=== PATIENT | female | born 1940 | race Caucasian/White ===

== ENCOUNTER 2022-12-22 17:34 | Inpatient (IN) | payer OTHER ==
[2022-12-22 18:24] VITALS: BMI 24.1
[2022-12-22] MEDS ORDERED: HALOPERIDOL LACTATE 5 MG/ML IM ONE (19:30)
[2022-12-22] MEDS ORDERED: LORazepam 2 MG/ML SDV VIAL IM ONE (19:58)
[2022-12-22 23:43] LABS: BASO % 0.6 % (0-2.0); HEMATOCRIT 36.4 % (32.4-45.2); HEMOGLOBIN 12.5 GM/dL (10.7-15.3); LYMPH % 36.9 % (8-40); MCHC 34.2 g/dl (32.0-36.0); MEAN CELL VOLUME 81.8 fl (80-96); MEAN PLT VOLUME 7.8 fl (7.5-11.1); MONO % 7.5 % (3.8-10.2); PLATELET COUNT 228 10^3/uL (134-434); RBC 4.45 M/mm3 (3.60-5.2); RDW 14.8 % (11.6-15.6); WHITE BLOOD COUNT 7.5 K/mm3 (4.0-10.0)
[2022-12-23 00:33] LABS: CALCIUM 8.6 mg/dL (8.5-10.1)
[2022-12-23 00:34] LABS: ALBUMIN 3.3 g/dl (3.4-5.0)
[2022-12-23 00:37] LABS: CREATININE 0.8 mg/dL (0.55-1.3)
[2022-12-23 00:39] LABS: BILIRUBIN,TOTAL 0.4 mg/dL (0.2-1); TOT PROT 5.8 g/dl (6.4-8.2)
[2022-12-23] MEDS ORDERED: ACETAMINOPHEN 325 MG TABLET (FP) PO PRN (03:31)
[2022-12-23] MEDS ORDERED: SODIUM CHLORIDE 500 ML IV STA (03:32)
[2022-12-23] MEDS ORDERED: FAMOTIDINE 20 MG/50 ML IVPB 20 MG/50 ML MG IVPB ONE ×2 (05:00→05:24)
[2022-12-23] MEDS ORDERED: HALOPERIDOL LACTATE 5 MG/ML IM ONE (05:45)
[2022-12-23] MEDS: SERTRALINE HCL 50 MG TABLET (FP) PO SCH (09:38)
[2022-12-23] MEDS ORDERED: risperiDONE 1 MG TABLET PO SCH (22:00)
[2022-12-23] MEDS: SENNOSIDES 8.8 MG/5 ML SYRUP PO SCH (22:01)
[2022-12-23] MEDS: ATORVASTATIN CA 10 MG TABLET (FP) PO SCH (22:02)
[2022-12-24 08:26] LABS: INR 1.02 (0.83-1.09); PROTHROMBIN TIME (PATIENT) 11.8 SEC (9.7-13.0)
[2022-12-24 08:29] LABS: ACTIVATED PTT 29.4 SECONDS (25.2-36.5)
[2022-12-24 08:38] LABS: POTASSIUM 3.7 mmol/L (3.5-5.1)
[2022-12-24 08:51] LABS: BLOOD UREA NITROGEN 24.3 mg/dL (7-18); CALCIUM 9.2 mg/dL (8.5-10.1); MAGNESIUM 2.2 mg/dL (1.8-2.4)
[2022-12-24 08:55] LABS: CREATININE 0.8 mg/dL (0.55-1.3); PHOSPHOROUS 3.2 mg/dL (2.5-4.9)
[2022-12-24] MEDS: FAMOTIDINE 20 MG TABLET PO SCH (10:21)
[2022-12-24] MEDS: SERTRALINE HCL 50 MG TABLET (FP) PO SCH (10:21)
[2022-12-24] MEDS: OLANZapine 10 MG TABLET PO SCH ×2 (22:18→22:45)
[2022-12-24] MEDS: MIRTAZAPINE 15 MG TABLET (FP) PO SCH ×2 (22:18→22:50)
[2022-12-24] MEDS: ATORVASTATIN CA 10 MG TABLET (FP) PO SCH ×2 (22:18→22:35)
[2022-12-24] MEDS: SENNOSIDES 8.8 MG/5 ML SYRUP PO SCH ×2 (22:18→22:50)
[2022-12-25] MEDS ORDERED: INSULIN (NOVOLOG) ASPART 100 UNITS/ML 10ML VIAL ONE (08:48)
[2022-12-25] MEDS: FAMOTIDINE 20 MG TABLET PO SCH (10:03)
[2022-12-25] MEDS: HALOPERIDOL LACTATE 5 MG/ML IM PRN (14:09)
[2022-12-25] MEDS: OLANZapine 10 MG TABLET PO SCH (15:03)
[2022-12-25] MEDS: SENNOSIDES 8.8 MG/5 ML SYRUP PO SCH (21:56)
[2022-12-25] MEDS: MIRTAZAPINE 15 MG TABLET (FP) PO SCH (21:56)
[2022-12-25] MEDS: ATORVASTATIN CA 10 MG TABLET (FP) PO SCH (21:56)
[2022-12-26] MEDS: FAMOTIDINE 20 MG TABLET PO SCH (11:53)
[2022-12-26] MEDS: OLANZapine 10 MG TABLET PO SCH (11:53)
[2022-12-26 16:06] LABS: BASO % 0.5 % (0-2.0); EOS % 0.8 % (0-4.5); HEMATOCRIT 35.3 % (32.4-45.2); HEMOGLOBIN 12.1 GM/dL (10.7-15.3); LYMPH % 31.9 % (8-40); MCH 28.1 pg (25.7-33.7); MCHC 34.2 g/dl (32.0-36.0); MEAN PLT VOLUME 7.8 fl (7.5-11.1); MONO % 7.4 % (3.8-10.2); NEUT % 59.4 % (42.8-82.8); PLATELET COUNT 210 10^3/uL (134-434); RBC 4.31 M/mm3 (3.60-5.2); RDW 14.3 % (11.6-15.6); WHITE BLOOD COUNT 6.7 K/mm3 (4.0-10.0)
[2022-12-26 16:27] LABS: CALCIUM 8.5 mg/dL (8.5-10.1); POTASSIUM 4.2 mmol/L (3.5-5.1)
[2022-12-26 16:29] LABS: BLOOD UREA NITROGEN 29.4 mg/dL (7-18)
[2022-12-26 16:31] LABS: CREATININE 0.7 mg/dL (0.55-1.3)
[2022-12-26] MEDS: SENNOSIDES 8.8 MG/5 ML SYRUP PO SCH (22:10)
[2022-12-26] MEDS: ATORVASTATIN CA 10 MG TABLET (FP) PO SCH (22:11)
[2022-12-26] MEDS: MIRTAZAPINE 15 MG TABLET (FP) PO SCH (22:11)
[2022-12-27 08:15] LABS: BASO % 0.6 % (0-2.0); EOS % 1.6 % (0-4.5); HEMATOCRIT 34.8 % (32.4-45.2); HEMOGLOBIN 11.9 GM/dL (10.7-15.3); LYMPH % 38.1 % (8-40); MCH 28.1 pg (25.7-33.7); MCHC 34.2 g/dl (32.0-36.0); MEAN PLT VOLUME 8.1 fl (7.5-11.1); MONO % 6.9 % (3.8-10.2); NEUT % 52.8 % (42.8-82.8); PLATELET COUNT 217 10^3/uL (134-434); RBC 4.24 M/mm3 (3.60-5.2); RDW 14.6 % (11.6-15.6); WHITE BLOOD COUNT 7.4 K/mm3 (4.0-10.0)
[2022-12-27 08:33] LABS: POTASSIUM 3.9 mmol/L (3.5-5.1)
[2022-12-27 08:36] LABS: BLOOD UREA NITROGEN 35.8 mg/dL (7-18); CALCIUM 8.3 mg/dL (8.5-10.1)
[2022-12-27 08:39] LABS: CREATININE 0.7 mg/dL (0.55-1.3)
[2022-12-27] MEDS: FAMOTIDINE 20 MG TABLET PO SCH (10:51)
[2022-12-27] MEDS: OLANZapine 10 MG TABLET PO SCH (10:51)
[2022-12-27 12:37] LABS: EPI CELLS 4 /uL (0-25.1); HYALINE CASTS 5 /uL (0-3.1); URINE APPEARANCE CLOUDY; URINE BACTERIA >9,000 /uL (0-1359); URINE BILIRUBIN NEGATIVE (NEGATIVE); URINE COLOR YELLOW; URINE GLUCOSE (UA) NEGATIVE (NEGATIVE); URINE KETONE NEGATIVE (NEGATIVE); URINE LEUK ESTERASE 1+ (NEGATIVE); URINE NITRITE NEGATIVE (NEGATIVE); URINE PROTEIN NEGATIVE (NEGATIVE); URINE WBC 154 /uL (0-25.8)
[2022-12-27 12:38] LABS: URINE RBC 52.4 /uL (0-23.9)
[2022-12-27] MEDS: MIRTAZAPINE 15 MG TABLET (FP) PO SCH (21:53)
[2022-12-27] MEDS: SENNOSIDES 8.8 MG/5 ML SYRUP PO SCH (21:53)
[2022-12-27] MEDS: CEFUROXIME AXETIL 500 MG TABLET PO SCH (21:53)
[2022-12-27] MEDS: ATORVASTATIN CA 10 MG TABLET (FP) PO SCH (21:53)
[2022-12-28] MEDS: CEFUROXIME AXETIL 500 MG TABLET PO SCH (13:29)
[2022-12-28] MEDS: FAMOTIDINE 20 MG TABLET PO SCH (13:30)
[2022-12-28] MEDS: OLANZapine 10 MG TABLET PO SCH (13:30)
[2022-12-28] MEDS: MIRTAZAPINE 15 MG TABLET (FP) PO SCH (22:59)
[2022-12-28] MEDS: ATORVASTATIN CA 10 MG TABLET (FP) PO SCH (22:59)
[2022-12-28] MEDS: SENNOSIDES 8.8 MG/5 ML SYRUP PO SCH (22:59)
[2022-12-29] MEDS: FAMOTIDINE 20 MG TABLET PO SCH (09:47)
[2022-12-29] MEDS: OLANZapine 10 MG TABLET PO SCH (09:47)
[2022-12-29] MEDS: ATORVASTATIN CA 10 MG TABLET (FP) PO SCH (21:59)
[2022-12-29] MEDS: SENNOSIDES 8.8 MG/5 ML SYRUP PO SCH (22:00)
[2022-12-29] MEDS: MIRTAZAPINE 15 MG TABLET (FP) PO SCH (22:00)
[2022-12-30] MEDS: OLANZapine 10 MG TABLET PO SCH (09:47)
[2022-12-30] MEDS: FAMOTIDINE 20 MG TABLET PO SCH (09:48)
[2022-12-30] MEDS: MIRTAZAPINE 15 MG TABLET (FP) PO SCH (22:13)
[2022-12-30] MEDS: ATORVASTATIN CA 10 MG TABLET (FP) PO SCH (22:13)
[2022-12-30] MEDS: SENNOSIDES 8.8 MG/5 ML SYRUP PO SCH (22:13)
[2022-12-31] MEDS: OLANZapine 10 MG TABLET PO SCH (10:17)
[2022-12-31] MEDS: FAMOTIDINE 20 MG TABLET PO SCH (10:17)
[2022-12-31] MEDS: SENNOSIDES 8.8 MG/5 ML SYRUP PO SCH (21:37)
[2022-12-31] MEDS: ATORVASTATIN CA 10 MG TABLET (FP) PO SCH (21:37)
[2022-12-31] MEDS: MIRTAZAPINE 15 MG TABLET (FP) PO SCH (21:37)
[2023-01-01] MEDS: HALOPERIDOL LACTATE 5 MG/ML IM PRN (04:51)
[2023-01-01 07:40] LABS: BASO % 0.7 % (0-2.0); EOS % 1.4 % (0-4.5); HEMATOCRIT 37.4 % (32.4-45.2); HEMOGLOBIN 12.6 GM/dL (10.7-15.3); MCHC 33.6 g/dl (32.0-36.0); MEAN CELL VOLUME 83.3 fl (80-96); MONO % 7.4 % (3.8-10.2); NEUT % 55.5 % (42.8-82.8); PLATELET COUNT 234 10^3/uL (134-434); RBC 4.49 M/mm3 (3.60-5.2); RDW 14.1 % (11.6-15.6); WHITE BLOOD COUNT 6.6 K/mm3 (4.0-10.0)
[2023-01-01 08:58] LABS: BLOOD UREA NITROGEN 36.8 mg/dL (7-18); CALCIUM 8.5 mg/dL (8.5-10.1); CREATININE 0.9 mg/dL (0.55-1.3)
[2023-01-01] MEDS: OLANZapine 10 MG TABLET PO SCH (10:07)
[2023-01-01] MEDS: FAMOTIDINE 20 MG TABLET PO SCH (10:07)
[2023-01-01] MEDS: MIRTAZAPINE 15 MG TABLET (FP) PO SCH (21:44)
[2023-01-01] MEDS: SENNOSIDES 8.8 MG/5 ML SYRUP PO SCH (21:44)
[2023-01-01] MEDS: ATORVASTATIN CA 10 MG TABLET (FP) PO SCH (21:44)
[2023-01-02] MEDS: FAMOTIDINE 20 MG TABLET PO SCH (10:33)
[2023-01-02] MEDS: OLANZapine 10 MG TABLET PO SCH (10:33)
[2023-01-02] MEDS: SENNOSIDES 8.8 MG/5 ML SYRUP PO SCH (22:02)
[2023-01-02] MEDS: MIRTAZAPINE 15 MG TABLET (FP) PO SCH (22:02)
[2023-01-02] MEDS: ATORVASTATIN CA 10 MG TABLET (FP) PO SCH (22:02)
[2023-01-03] MEDS: FAMOTIDINE 20 MG TABLET PO SCH (09:27)
[2023-01-03] MEDS: OLANZapine 10 MG TABLET PO SCH (09:27)
[2023-01-03] MEDS: ATORVASTATIN CA 10 MG TABLET (FP) PO SCH ×2 (22:00→23:25)
[2023-01-03] MEDS: SENNOSIDES 8.8 MG/5 ML SYRUP PO SCH ×2 (22:00→23:35)
[2023-01-03] MEDS: MIRTAZAPINE 15 MG TABLET (FP) PO SCH ×2 (22:00→23:25)
[2023-01-04] MEDS: FAMOTIDINE 20 MG TABLET PO SCH (10:19)
[2023-01-04] MEDS: OLANZapine 10 MG TABLET PO SCH (10:19)
[2023-01-04] MEDS: ATORVASTATIN CA 10 MG TABLET (FP) PO SCH (22:11)
[2023-01-04] MEDS: MIRTAZAPINE 15 MG TABLET (FP) PO SCH (22:11)
[2023-01-04] MEDS: SENNOSIDES 8.8 MG/5 ML SYRUP PO SCH (22:11)
[2023-01-05] MEDS: OLANZapine 10 MG TABLET PO SCH (09:04)
[2023-01-05] MEDS: FAMOTIDINE 20 MG TABLET PO SCH (09:04)
[2023-01-05] MEDS: MIRTAZAPINE 15 MG TABLET (FP) PO SCH (23:15)
[2023-01-05] MEDS: ATORVASTATIN CA 10 MG TABLET (FP) PO SCH (23:15)
[2023-01-05] MEDS: SENNOSIDES 8.8 MG/5 ML SYRUP PO SCH (23:15)
[2023-01-06] MEDS: FAMOTIDINE 20 MG TABLET PO SCH (10:29)
[2023-01-06] MEDS: OLANZapine 10 MG TABLET PO SCH (10:30)
[2023-01-06] MEDS: ENOXAPARIN NA (PORCINE) 40 MG/0.4 ML DISP.SYRIN SQ SCH (14:41)
[2023-01-06] MEDS: MIRTAZAPINE 15 MG TABLET (FP) PO SCH (22:13)
[2023-01-06] MEDS: ATORVASTATIN CA 10 MG TABLET (FP) PO SCH (22:13)
[2023-01-06] MEDS: SENNOSIDES 8.8 MG/5 ML SYRUP PO SCH (22:13)
[2023-01-07] MEDS: ENOXAPARIN NA (PORCINE) 40 MG/0.4 ML DISP.SYRIN SQ SCH (11:16)
[2023-01-07] MEDS: OLANZapine 10 MG TABLET PO SCH (11:17)
[2023-01-07] MEDS: FAMOTIDINE 20 MG TABLET PO SCH (11:17)
[2023-01-07 13:23] VITALS: RESP 18
[2023-01-07] MEDS: ATORVASTATIN CA 10 MG TABLET (FP) PO SCH (22:27)
[2023-01-07] MEDS: SENNOSIDES 8.8 MG/5 ML SYRUP PO SCH (22:27)
[2023-01-07] MEDS: MIRTAZAPINE 15 MG TABLET (FP) PO SCH (22:27)
[2023-01-08] MEDS: OLANZapine 10 MG TABLET PO SCH ×2 (08:49→09:35)
[2023-01-08] MEDS: FAMOTIDINE 20 MG TABLET PO SCH ×2 (08:49→09:35)
[2023-01-08] MEDS: ENOXAPARIN NA (PORCINE) 40 MG/0.4 ML DISP.SYRIN SQ SCH ×2 (08:49→09:35)
[2023-01-08 11:12] VITALS: BP 136/66; PULSE 98; TEMP 98.3
== END 2023-01-08 12:45 | DRG 885 ==
LOC: JER 17:34 → JERBED 12-23 03:31 → J7W 12-23 06:21 → OBSVTOIN 12-23 16:07
PROVIDERS: ADMIT Internal Medicine; ATTEND Internal Medicine
DX: F20.9 Schizophrenia, unspecified (principal); N39.0 Urinary tract infection, site not specified; F03.90 Unspecified dementia, unspecified severity, without behavioral disturbance, psychotic disturbance, mood disturbance, and anxiety; E78.00 Pure hypercholesterolemia, unspecified; E86.0 Dehydration; K21.9 Gastro-esophageal reflux disease without esophagitis; F32.9 Major depressive disorder, single episode, unspecified; E88.09 Other disorders of plasma-protein metabolism, not elsewhere classified
CPT/HCPCS: 0241U-QW; 36415; 80048; 80053; 80307; 81003; 83735; 84100; 85025; 85610; 85730; 87086; 93005; 93010; 97116-GP; 97161-GP; 99285-25; G0378